=== PATIENT | female | born 1975 | race Caucasian/White ===

== ENCOUNTER 2019-03-10 00:29 | Emergency (ER) | payer OTHER ==
[~2019-03-10] VITALS: Ht 175.3 cm; Wt 116.1 kg
[2019-03-10 00:43] VITALS: BP 136/71
== END 2019-03-10 01:04 | disposition home or self-care (01) ==
LOC: ER 00:34
DX: L08.9 Local infection of the skin and subcutaneous tissue, unspecified (principal)